=== PATIENT | female | born 1965 | race Caucasian/White ===

== ENCOUNTER → 2019-08-19 13:08 | Outpatient (BNVA) | payer MEDICARE, SELFPAY | PROVIDERS: Family Provider Nurse Practitioner Family; PCP Nurse Practitioner Family; Visit Provider Nurse Practitioner Psychiatric/Mental Health | DX: R45.7 State of emotional shock and stress, unspecified (principal); Z63.4 Disappearance and death of family member; F31.73 Bipolar disorder, in partial remission, most recent episode manic | CPT/HCPCS: 99213 ==

== ENCOUNTER → 2019-09-18 13:30 | Outpatient (BNVA) | payer MEDICARE, SELFPAY | PROVIDERS: Family Provider Nurse Practitioner Family; PCP Nurse Practitioner Family; Visit Provider Nurse Practitioner Psychiatric/Mental Health | DX: R45.7 State of emotional shock and stress, unspecified (principal); Z63.4 Disappearance and death of family member; F31.73 Bipolar disorder, in partial remission, most recent episode manic | CPT/HCPCS: 99213 ==

== ENCOUNTER → 2019-11-11 08:01 | Outpatient (BNVA) | payer MEDICARE, SELFPAY | PROVIDERS: Family Provider Nurse Practitioner Family; PCP Nurse Practitioner Family; Visit Provider Nurse Practitioner Psychiatric/Mental Health | DX: F31.73 Bipolar disorder, in partial remission, most recent episode manic (principal); Z63.4 Disappearance and death of family member | CPT/HCPCS: 99213 ==

== ENCOUNTER → 2019-12-09 08:06 | Outpatient (BNVA) | payer MEDICARE, SELFPAY | PROVIDERS: Family Provider Nurse Practitioner Family; PCP Nurse Practitioner Family; Visit Provider Nurse Practitioner Psychiatric/Mental Health | DX: F31.73 Bipolar disorder, in partial remission, most recent episode manic (principal); Z63.4 Disappearance and death of family member | CPT/HCPCS: 99213 ==

== ENCOUNTER → 2020-01-06 07:32 | Outpatient (BNVA) | payer MEDICARE, SELFPAY | PROVIDERS: Family Provider Nurse Practitioner Family; PCP Nurse Practitioner Family; Visit Provider Nurse Practitioner Psychiatric/Mental Health | DX: Z63.4 Disappearance and death of family member (principal); F31.73 Bipolar disorder, in partial remission, most recent episode manic; Z79.899 Other long term (current) drug therapy | CPT/HCPCS: 99214 ==

== ENCOUNTER → 2020-02-04 07:51 | Outpatient (BNVA) | payer MEDICARE, SELFPAY | PROVIDERS: Family Provider Nurse Practitioner Family; PCP Nurse Practitioner Family; Visit Provider Nurse Practitioner Psychiatric/Mental Health | DX: F31.73 Bipolar disorder, in partial remission, most recent episode manic (principal); Z63.4 Disappearance and death of family member | CPT/HCPCS: 99214 ==

== ENCOUNTER → 2020-04-01 08:00 | Outpatient (BNVA) | payer MEDICARE, SELFPAY | PROVIDERS: Family Provider Nurse Practitioner Family; PCP Nurse Practitioner Family; Visit Provider Nurse Practitioner Psychiatric/Mental Health | DX: Z63.4 Disappearance and death of family member (principal); F31.73 Bipolar disorder, in partial remission, most recent episode manic; F17.210 Nicotine dependence, cigarettes, uncomplicated | CPT/HCPCS: 99214 ==

== ENCOUNTER → 2020-04-29 07:31 | Outpatient (BNVA) | payer MEDICARE, SELFPAY | PROVIDERS: Family Provider Nurse Practitioner Family; PCP Nurse Practitioner Family; Visit Provider Nurse Practitioner Psychiatric/Mental Health | DX: F31.73 Bipolar disorder, in partial remission, most recent episode manic (principal); Z63.4 Disappearance and death of family member | CPT/HCPCS: 99214 ==

== ENCOUNTER → 2020-05-29 07:53 | Outpatient (BNVA) | payer MEDICARE, SELFPAY | PROVIDERS: Family Provider Nurse Practitioner Family; PCP Nurse Practitioner Family; Visit Provider Nurse Practitioner Psychiatric/Mental Health | DX: F31.73 Bipolar disorder, in partial remission, most recent episode manic (principal); Z63.4 Disappearance and death of family member; Z79.899 Other long term (current) drug therapy | CPT/HCPCS: 80053; 80061; 83036; 99213 ==

== ENCOUNTER → 2020-06-26 07:30 | Outpatient (BNVA) | payer MEDICARE, SELFPAY | PROVIDERS: Family Provider Nurse Practitioner Family; PCP Nurse Practitioner Family; Visit Provider Nurse Practitioner Psychiatric/Mental Health | DX: F31.73 Bipolar disorder, in partial remission, most recent episode manic (principal); Z63.4 Disappearance and death of family member | CPT/HCPCS: 99213 ==

== ENCOUNTER → 2020-08-07 07:56 | Outpatient (BNVA) | payer MEDICARE, SELFPAY | PROVIDERS: Family Provider Nurse Practitioner Family; PCP Nurse Practitioner Family; Visit Provider Nurse Practitioner Psychiatric/Mental Health | DX: F31.73 Bipolar disorder, in partial remission, most recent episode manic (principal); Z63.4 Disappearance and death of family member | CPT/HCPCS: 99213 ==

== ENCOUNTER → 2020-09-18 07:41 | Outpatient (BNVA) | payer MEDICARE, SELFPAY | PROVIDERS: Family Provider Nurse Practitioner Family; PCP Nurse Practitioner Family; Visit Provider Nurse Practitioner Psychiatric/Mental Health | DX: Z63.4 Disappearance and death of family member (principal); F31.73 Bipolar disorder, in partial remission, most recent episode manic | CPT/HCPCS: 99214 ==

== ENCOUNTER → 2020-10-12 07:58 | Outpatient (BNVA) | payer MEDICARE, SELFPAY | PROVIDERS: Family Provider Nurse Practitioner Family; PCP Nurse Practitioner Family; Visit Provider Nurse Practitioner Psychiatric/Mental Health | DX: F31.73 Bipolar disorder, in partial remission, most recent episode manic (principal); Z63.4 Disappearance and death of family member | CPT/HCPCS: 99214 ==

== ENCOUNTER → 2020-11-18 07:51 | Outpatient (BNVA) | payer MEDICARE, SELFPAY | PROVIDERS: Family Provider Nurse Practitioner Family; PCP Nurse Practitioner Family; Visit Provider Nurse Practitioner Psychiatric/Mental Health | DX: Z63.4 Disappearance and death of family member (principal); F31.73 Bipolar disorder, in partial remission, most recent episode manic | CPT/HCPCS: 99214 ==

== ENCOUNTER → 2020-12-23 07:51 | Outpatient (BNVA) | payer MEDICARE, SELFPAY | PROVIDERS: Family Provider Nurse Practitioner Family; PCP Nurse Practitioner Family; Visit Provider Nurse Practitioner Psychiatric/Mental Health | DX: F31.73 Bipolar disorder, in partial remission, most recent episode manic (principal); Z63.4 Disappearance and death of family member | CPT/HCPCS: 99214 ==

== ENCOUNTER → 2021-01-27 13:15 | Outpatient (BNVA) | payer MEDICARE, SELFPAY | PROVIDERS: Family Provider Nurse Practitioner Family; PCP Nurse Practitioner Family; Visit Provider Nurse Practitioner Psychiatric/Mental Health | DX: F31.73 Bipolar disorder, in partial remission, most recent episode manic (principal); Z63.4 Disappearance and death of family member | CPT/HCPCS: 99214 ==

== ENCOUNTER → 2021-03-26 09:51 | Outpatient (BNVA) | payer MEDICARE, SELFPAY | PROVIDERS: Family Provider Nurse Practitioner Family; PCP Nurse Practitioner Family; Visit Provider Nurse Practitioner Psychiatric/Mental Health | DX: F31.73 Bipolar disorder, in partial remission, most recent episode manic (principal); Z63.4 Disappearance and death of family member | CPT/HCPCS: 99214 ==

== ENCOUNTER → 2021-05-06 11:11 | Outpatient (BNVA) | payer MEDICARE, SELFPAY | PROVIDERS: Family Provider Nurse Practitioner Family; PCP Nurse Practitioner Family; Visit Provider Nurse Practitioner Psychiatric/Mental Health | DX: F31.73 Bipolar disorder, in partial remission, most recent episode manic (principal); Z79.899 Other long term (current) drug therapy; Z63.4 Disappearance and death of family member | CPT/HCPCS: 99214 ==

== ENCOUNTER 2021-05-06 12:09 | Outpatient (CLI) | payer MEDICARE, SELFPAY ==
--- NOTE | 2021-05-06 12:57 | ECG_ITS ---
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 Measurements Intervals [place] Rate: 51 P: 56 [place]: 156 QRS: 33 QRSD: 86 T: 41 QT: 441 QTc: 408 Interpretive Statements SINUS BRADYCARDIA No previous ECG available for comparison Electronically Signed On 05-07-2021 5:49:11 CDT by Dali Silva M.D. [email or web address]
== END 2021-05-06 12:10 | disposition home or self-care (01) ==
PROVIDERS: PCP Nurse Practitioner Family; Visit Provider Nurse Practitioner Psychiatric/Mental Health
DX: Z79.899 Other long term (current) drug therapy (principal); R00.1 Bradycardia, unspecified
CPT/HCPCS: 93005; 99214

== ENCOUNTER 2021-05-17 10:16 | Outpatient (CLI) | payer MEDICARE, SELFPAY ==
[2021-05-17 11:17] LABS: Alanine Aminotransferase 21 U/L (0-33); Albumin Level 4.8 g/dL (3.5-5.2); Alkaline Phosphatase 88 IU/L (35-105); Anion Gap 16.2 (5-19); Aspartate Amino Transferase 25 U/L (0-32); Blood Urea Nitrogen 17 mg/dL (6-20); Calcium 10.3 mg/dL (8.5-10.5); Carbon Dioxide 27 mmol/L (22-29); Chloride 103 mmol/L (98-107); Chol HDL Ratio 5.91 mg/dL (0.0-4.40); Cholesterol 260 mg/dL (0-200); Globulin 3.7 g/dL (1.3-4.6); Glomerular Filtration Rate 57.4 mL/min (90-130); Glucose 86 mg/dL (65-115); HDL Cholesterol 44 mg/dL (60-100); LDL Cholesterol Calculated 147 mg/dL (50-129); LDL HDL Ratio 3.34 RATIO (0.00-3.22); Osmolality Calculated 295 mOsm/kg (285-295); Potassium 4.2 mmol/L (3.5-5.1); Sodium 142 mmol/L (136-145); Total Bilirubin 0.2 mg/dL (0.15-1.2); Total Protein 8.5 g/dL (6.6-8.7); Triglycerides 346 mg/dL (0-150)
[2021-05-17 11:19] LABS: Estmated Average Glucose 100; Hemoglobin A1C 5.1 % (4.0-6.0)
== END 2021-05-17 10:17 | disposition home or self-care (01) ==
LOC: LAB 10:21
PROVIDERS: Nurse Practitioner Psychiatric/Mental Health; PCP Nurse Practitioner Family; Visit Provider Nurse Practitioner Family
DX: Z79.899 Other long term (current) drug therapy (principal)
CPT/HCPCS: 80053; 80061; 83036

== ENCOUNTER → 2021-08-11 07:50 | Outpatient (BNVA) | payer MEDICARE, SELFPAY | PROVIDERS: PCP Nurse Practitioner Family; Visit Provider Nurse Practitioner Psychiatric/Mental Health | DX: F31.73 Bipolar disorder, in partial remission, most recent episode manic (principal); Z79.899 Other long term (current) drug therapy; Z63.4 Disappearance and death of family member | CPT/HCPCS: 99214 ==

== ENCOUNTER → 2021-10-06 10:51 | Outpatient (BNVA) | payer MEDICARE, SELFPAY | PROVIDERS: PCP Nurse Practitioner Family; Visit Provider Nurse Practitioner Psychiatric/Mental Health | DX: F31.73 Bipolar disorder, in partial remission, most recent episode manic (principal); Z63.4 Disappearance and death of family member; Z79.899 Other long term (current) drug therapy | CPT/HCPCS: 99214 ==

== ENCOUNTER 2021-10-06 13:25 | Emergency (ER) | payer MEDICARE, SELFPAY ==
[2021-10-06 14:00] VITALS: PULSE 60; RESP 16; TEMP 36.9; O2SAT 96; BMI 25.0
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
--- NOTE | 2021-10-06 14:16 | XR_ITS ---
WS: [id number] XR ankle RT min 3V* [id number] REASON FOR EXAM: injury FINDINGS: Oblique comminuted fracture of the distal fibula which involves the syndesmosis. Fracture fragments are not significantly displaced or angulated. There is mild narrowing of the ankle mortise and lateral clear space. On the lateral there is an additional bone density posteriorly. Uncertain as to whether this represen ts part of the distal fibular fracture or an additional posterior malleolar fracture. Small bony bodies adjacent to the medial malleolus appear well-corticated and likely represent old me dial collateral ligamentous injury. XR/XR ankle RT min 3V* [id number] IMPRESSION: Distal right fibular fracture. Possibly additional posterior malleolar fracture.
--- NOTE | 2021-10-06 14:16 | XR_ITS ---
WS: [id number] XR hand LT min 3V* [id number] REASON FOR EXAM: injury FINDINGS: No acute fracture. No dislocation. Arthropathy involving the metacarpal phalangeal and carpal metacarpal joint of the thumb characterize d by narrowing of the joint space with subchondral sclerosis and subluxation. No soft tissue abnormality. XR/XR hand LT min 3V* [id number] IMPRESSION: No fracture or dislocation. Osteoarthritis of the thumb.
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
[2021-10-06] MEDS: tetanus-dipt-pertussis 0.5 mL SDV IM (16:23)
--- NOTE | 2021-10-07 10:36 | DCPLANNER ---
Addendum entered by Alona Pride 10/15/21 09:15: Vangie from ortho informed case aide that the clinic attempted to reach patient, on first attempt patient hung up on clinic. Then clinic called back,no answer but did leave a voicemail asking patient to call and schedule the appointment. Then ortho clinic called life partner, left a message with the life partner, explaining that the clinic was trying to get patient a follow up appointment scheduled. Patient never returned the clinics call. audio/visual manager called patient, left a voicemail for patient to return rifle case repairer phone call. Then case aide called life partner, left a message with the life partner to have patient call the ortho clinic to schedule an appointment. Original Note: audio/visual manager had message to schedule a follow up appointment for patient with ortho. audio/visual manager called the ortho clinic, spoke with Brittney, gave clinic patients information. audio/visual manager was told that patients information would be printed and reviewed. Clinic will call patient with appointment information.
== END 2021-10-06 16:31 | disposition home or self-care (01) ==
PROVIDERS: Emergency Provider Nurse Practitioner Family; PCP Nurse Practitioner Family
DX: S82.821A Torus fracture of lower end of right fibula, initial encounter for closed fracture (principal); S50.12XA Contusion of left forearm, initial encounter; S50.11XA Contusion of right forearm, initial encounter; S80.12XA Contusion of left lower leg, initial encounter; S80.11XA Contusion of right lower leg, initial encounter; S20.112A Abrasion of breast, left breast, initial encounter; W55.12XA Struck by horse, initial encounter; Z87.891 Personal history of nicotine dependence; Z23 Encounter for immunization
CPT/HCPCS: 71045; 73130; 73610; 90471; 90715; 99282

== ENCOUNTER → 2021-11-26 12:29 | Outpatient (BNVA) | payer MEDICARE, SELFPAY | PROVIDERS: PCP Nurse Practitioner Family; Visit Provider Nurse Practitioner Psychiatric/Mental Health | DX: F31.73 Bipolar disorder, in partial remission, most recent episode manic (principal); Z63.4 Disappearance and death of family member; Z79.899 Other long term (current) drug therapy | CPT/HCPCS: 99214 ==

== ENCOUNTER → 2022-07-01 12:52 | Outpatient (BNVA) | payer MEDICARE, OTHER, SELFPAY | PROVIDERS: PCP Nurse Practitioner Family; Visit Provider Nurse Practitioner Psychiatric/Mental Health | DX: Z79.899 Other long term (current) drug therapy (principal); F31.73 Bipolar disorder, in partial remission, most recent episode manic; Z63.4 Disappearance and death of family member | CPT/HCPCS: 80053; 80061; 83036 ==

== ENCOUNTER 2023-01-06 10:14 | Outpatient (CLI) | payer MEDICARE, SELFPAY | END 2023-01-06 10:15 | disposition home or self-care (01) | PROVIDERS: PCP Nurse Practitioner Family; Visit Provider Nurse Practitioner Psychiatric/Mental Health | DX: Z79.899 Other long term (current) drug therapy (principal) | CPT/HCPCS: 93005 ==

== ENCOUNTER → 2024-01-02 14:48 | Outpatient (BNVA) | payer MEDICARE, SELFPAY | PROVIDERS: PCP Nurse Practitioner Family; Visit Provider Nurse Practitioner Psychiatric/Mental Health | DX: Z79.899 Other long term (current) drug therapy (principal) | CPT/HCPCS: 80053; 80061; 83036 ==

== ENCOUNTER → 2024-06-11 15:23 | Outpatient (BNVA) | payer MEDICARE, SELFPAY | PROVIDERS: PCP Nurse Practitioner Family; Visit Provider Nurse Practitioner Psychiatric/Mental Health | DX: Z79.899 Other long term (current) drug therapy (principal); F31.73 Bipolar disorder, in partial remission, most recent episode manic; Z63.4 Disappearance and death of family member | CPT/HCPCS: 80061 ==

== ENCOUNTER 2024-11-30 23:53 | Emergency (ER) | payer MEDICARE, SELFPAY ==
[2024-11-30 23:59] VITALS: BP 131/78; PULSE 57; RESP 17; TEMP 37.1; O2SAT 99; BMI 19.0
[2024-12-01 01:46] LABS: Basophils % 0.1 %; Hematocrit 39.5 % (36-47); Lymphocytes # 1.3 10^3/uL (0.8-4.8); Lymphocytes % 11.6 %; Mean Corpuscular HGB Conc 32.9 g/dL (30-55); Mean Corpuscular Hemoglobin 31.3 pg (27-33); Mean Corpuscular Volume 95.2 fl (85-98); Mean Platelet Volume 10.6 fL (7.4-10.4); Monocytes # 0.9 10^3/uL (0.2-0.9); Monocytes % 7.5 %; Neutrophils # 9.21 10^3/uL (1.8-7.7); Neutrophils % 80.5 %; Nucleated Red Blood Cells % 0 %; Platelet Count 190 10^3/cmm (157-399); Red Blood Count 4.15 10^6/uL (3.85-5.65); Red Cell Distribution Width 13.4 % (12.1-15.1); White Blood Count 11.44 10^3/uL (3.29-11.43)
[2024-12-01 02:09] LABS: Anion Gap 19.2 (5-19); Blood Urea Nitrogen 19 mg/dL (6-20); Calcium 10.3 mg/dL (8.5-10.5); Carbon Dioxide 22 mmol/L (22-29); Chloride 104 mmol/L (98-107); Creatinine Clr Calc Pharmacy 64.8333; Glomerular Filtration Rate 64.1 mL/min (90-130); Glucose 156 mg/dL (65-115); Lipase 36 U/L (13-60); Osmolality Calculated 299 mOsm/kg (285-295); Potassium 3.2 mmol/L (3.5-5.1); Sodium 142 mmol/L (136-145)
[2024-12-01 02:14] LABS: Alanine Aminotransferase 14 U/L (0-33); Albumin Level 4.9 g/dL (3.5-5.2); Alkaline Phosphatase 85 U/L (35-105); Aspartate Amino Transferase 27 U/L (0-32); Total Bilirubin 0.4 mg/dL (0.15-1.2); Total Protein 7.9 g/dL (6.6-8.7)
[2024-12-01 02:20] VITALS: BP 137/63; PULSE 57; O2SAT 95
[2024-12-01] MEDS: sodium chloride 0.9% 1,000 ML 999 ML IV (03:23)
[2024-12-01] MEDS: ketorolac 30 mg/mL INJ IVP (03:24)
[2024-12-01] MEDS: ondansetron 2 mg/ML SDV 2 mL 4 MG IVP (03:26)
[2024-12-01] MEDS: metoclopramide 5 mg/mL SDV 2 mL 10 MG IVP (03:27)
[2024-12-01 03:29] VITALS: BP 143/82; PULSE 54; RESP 17; O2SAT 100
[2024-12-01 03:36] LABS: Bilirubin Urine Negative (Negative); Blood Urine Negative (Negative); Glucose Urine UA Negative (Normal); Ketones Urine 1+ (Negative); Leukocyte Esterase Urine 2+ (Negative); Nitrate Urine Negative (Negative); Protein Urine 2+ (Negative); Urine Appearance Cloudy (CLEAR); Urine Color Dark Yellow (Yellow)
[2024-12-01 03:41] LABS: Add Urine Microscopic? YES; Bacteria Urine 2+ /hpf; Hyaline Casts Urine 7.42 /lpf; RBC Urine 21-50 /hpf (0-2); WBC Urine 51-100 /hpf (0-5)
[2024-12-01 03:51] LABS: Specific Gravity, Urine 1.038 (1.005-1.030)
[2024-12-01 03:52] LABS: UA Slide Review UA Slide Review Perf
[2024-12-01 03:53] LABS: Add Urine Culture? No; Calcium Oxalate Crystals Urine >100 /hpf
--- NOTE | 2024-12-01 04:10 | CTR_ITS ---
PROCEDURE INFORMATION: Exam: CT Abdomen And Pelvis Without Contrast Exam date and time: 12/01/2024 4:25 AM Age: 59 years old Clinical indication: Fever and nausea and vomiting and other: Hematuria; Abdominal pain; Localized; Lower abd pain with fever, n/v, and hematuria. ; Additional info: Abd pain, vomiting, hematuria TECHNIQUE: Imaging protocol: Computed tomography of the abdomen and pelvis without contrast. Radiation optimization: All CT scans at this facility use at least one of these dose optimization techniques: automated exposure control; mA and/or kV adjustment per patient size (includes targeted exams where dose is matched to clinical indication); or iterative reconstruction. COMPARISON: CR XR chest 1V portable [id number] 06/10/2021 13:51 RADIATION DOSE METRICS: Total DLP (mGy-cm): 333.47 FINDINGS: Lungs: Bilateral lower lobe calcified granulomata. No consolidation. Liver: Normal size and homogeneous density. No liver mass is seen. Gallbladder and biliary ducts: No calcified gallstones. No ductal dilation. Pancreas: Normal size and homogeneous density. No ductal dilation. Spleen: Normal. No splenomegaly. Adrenal glands: Normal. No mass. Kidneys and ureters: There is no hydronephrosis. No renal or obstructive ureteral calculi are identified. Stomach and bowel: There is no evidence of small bowel or colonic obstruction. Appendix: No evidence of appendicitis. Intraperitoneal space: No free air. No significant fluid collection. Vasculature: There is mild atherosclerotic calcification of the abdominal aorta and its branches without aneurysm. Lymph nodes: No enlarged retroperitoneal or mesenteric lymph nodes. Urinary bladder: There is mild bladder wall thickening. Reproductive: Unremarkable as visualized. Bones/joints: No acute fracture. Degenerative disc disease at L4-L5 without significant central spinal canal stenosis. At L5-S1, there is bilateral pars defects and mild grade 1 anterolisthesis of L5. There is degenerative disc disease, anterior and posterior osteophytes, facet arthrosis with moderate bilateral neural foraminal narrowing. Soft tissues: Unremarkable. CT/CT kidney stone [id number] IMPRESSION: 1. Bladder wall thickening suggesting cystitis, incomplete distention or chronic outflow obstruction. 2. Discogenic and hypertrophic bony changes of the lumbar spine as described above.
[2024-12-01 05:26] VITALS: BP 141/68; PULSE 62; RESP 16; O2SAT 94
[2024-12-01] MEDS: cefTRIAXone 1,000 mg SDV 1000 MG IVP (05:57)
[2024-12-01 06:03] VITALS: BP 146/73; PULSE 68; RESP 15; O2SAT 98
--- NOTE | 2024-12-01 06:04 | W.ED.NAVMDI ---
HPI - Nausea/Vomiting/Diarrhea General: Chief complaint: Nausea/Vomiting/Diarrhea Stated complaint: Pain in upper ABD N/V fever weakness Time Seen by Provider: 12/01/24 03:03 History of Present Illness: 59 year old female with nausea, vomiting, diarrhea, and low grade fever since 6:00 in the morning. She has been unable to keep liquids down. She has generalized abdominal pain, although worse on the left than the right. No sick contacts. No history of abdominal surgery. No history of food poisoning. Related Data Home Medications ?Medication ?Instructions ?Recorded ?Confirmed krill oil 500 mg capsule 500 mg PO BID 08/19/19 11/22/24 vitamin B complex (B 1 tab PO QDAY 08/19/19 11/22/24 Complex-Vitamin B12 tablet) black cohosh 200 mg capsule 200 mg PO BID 09/03/20 11/22/24 Multivitamin PO 07/01/22 11/22/24 Previous Rx's ?Medication ?Instructions ?Recorded clonazepam 0.5 mg tablet (Klonopin) 0.5 mg PO BID PRN anxiety #60 tabs 10/10/24 lamotrigine 100 mg tablet 100 mg PO .QHS #90 tabs 10/10/24 (Lamictal) sertraline 100 mg tablet (Zoloft) 200 mg (2 x 100 mg) PO QAM #180 10/10/24 tabs ziprasidone HCl 80 mg capsule 80 mg PO .evening with meal #90 10/10/24 (Geodon) caps cefdinir 300 mg capsule 300 mg PO BID #14 caps 12/01/24 ondansetron 4 mg disintegrating 4 mg PO Q6H PRN nausea and 12/01/24 tablet vomiting #14 tabs Allergies Allergy/AdvReac Type Severity Reaction Status Date / Time hydrocodone Allergy Intermediate Itching & Verified 11/22/24 11:01 N & V tramadol AdvReac ADR-Itching Verified 11/22/24 11:01 [facility] PFSH: Medical History Psychiatric care Bipolar I disorder, most recent episode manic, in partial remission Bereavement sudden loss of adult son, 06/24/2019 loss of father 08/16/24 Social History Smoking and tobacco/nicotine status: former use of tobacco/nicotine Physical Exam Const: COMMON NORMALS: no acute distress GENERAL APPEARANCE: cooperative; not ill appearing and not frail appearing HENMT: COMMON NORMALS: normocephalic, atraumatic and Normal external nose present HEAD & SCALP: normocephalic and atraumatic FACE & SINUS: normal facial exam and face symmetric NOSE: Normal external nose present Eye: COMMON NORMALS: Equal, round and reactive pupils present and EOMs intact bilaterally PUPIL: Yes Equal, round and reactive pupils present Neck/C-Spine: GENERAL: Yes trachea midline Chest: CHEST: Yes Symmetrical chest wall rise Resp: COMMON NORMALS: normal respiratory effort, No retractions, No use of accessory muscles and clear to auscultation bilaterally AUSCULTATION: clear to auscultation bilaterally Cardio: COMMON NORMALS: regular rate and regular rhythm RATE: regular rate RHYTHM: regular rhythm GI: COMMON NORMALS: Normal to inspection, nondistended, normoactive bowel sounds present Extremity: COMMON NORMALS: no pedal edema Neuro: ERIN COMA SCALE: document GCS findings Erin coma scale eye opening: Spontaneous [place] coma scale verbal response: Orientated [place] coma scale motor response: Obey commands Erin coma scale total score: 15 SENSORY EXAM: Yes extremities (intact) Psych: COMMON NORMALS: speech normal SPEECH: Yes normal speech Skin: COMMON NORMALS: no rashes or lesions noted GENERAL SKIN EXAM: no rashes or lesions noted Course Vital Signs: Vital signs: Vital Signs Temperature 98.8 F 11/30/24 23:59 Pulse Rate 64 12/01/24 06:13 Respiratory Rate 16 12/01/24 06:13 Blood Pressure 146/73 12/01/24 06:13 Pulse Oximetry 98 12/01/24 06:13 Oxygen Delivery Me thod Room Air 12/01/24 06:03 MDM - Nausea/Vomiting/Diarrhea Medical Decision Making Some mild left sided tenderness. White blood cell count is 11.4. Potassium is 3.2. CRP is only 3. urinalysis shows hematuria, with leukocytes. Lipase is normal. CT reveals no stone or obsturction but does show cystitis. She was treated with IV fluids, anti emetics, antibiotics here. And she'll go home on Zofran and antibiotics. To return for worsening symptoms. Lab Data 12/01/24 01:29 12/01/24 01:29 Radiology Impressions Abdomen/Pelvis CT 12/01/24 04:10 IMPRESSION: 1. Bladder wall thickening suggesting cystitis, incomplete distention or chronic outflow obstruction. 2. Discogenic and hypertrophic bony changes of the lumbar spine as described above. Laboratory Results WBC 11.44 10^3/uL (3.29-11.43) H 12/01/24 01: RBC 4.15 10^6/uL (3.85-5.65) 12/01/24 01: Hgb 13.00 g/dL (11.27-16.99) 12/01/24 01: Hct 39.5 % (36-47) 12/01/24 01: MCV 95.2 fl (85-98) 12/01/24 01: MCH 31.3 pg (27-33) 12/01/24 01: MCHC 32.9 g/dL (30-55) 12/01/24 01: RDW 13.4 % (12.1-15.1) 12/01/24 01: Plt Count 190 10^3/cmm (157-399) 12/01/24 01: MPV 10.6 fL (7.4-10.4) H 12/01/24 01: Neut % (Auto) 80.5 % 12/01/24 01: Lymph % (Auto) 11.6 % 12/01/24 01: [place] % (Auto) 7.5 % 12/01/24 01: Eos % (Auto) 0.0 % 12/01/24 01: Baso % (Auto) 0.1 % 12/01/24 01: Neut # (Auto) 9.21 10^3/uL (1.8-7.7) H 12/01/24 01: Lymph # (Auto) 1.3 10^3/uL (0.8-4.8) 12/01/24 01: [place] # (Auto) 0.9 10^3/uL (0.2-0.9) 12/01/24 01: Eos # (Auto) 0.0 10^3/uL (0.0-0.8) 12/01/24 01: Baso # (Auto) 0.0 10^3/uL (0.0-0.1) 12/01/24 01:29 Nucleated RBC % (auto) 0 % 12/01/24 01: Nucleated RBCs # 0.0 /100WBC 12/01/24 01:29 Sodium 142 mmol/L (136-145) 12/01/24 01: Potassium 3.2 mmol/L (3.5-5.1) L 12/01/24 01: Chloride 104 mmol/L (98-107) 12/01/24 01: Carbon Dioxide 22 mmol/L (22-29) 12/01/24 01:29 Anion Gap 19.2 (5-19) H 12/01/24 01:29 BUN 19 mg/dL (6-20) 12/01/24 01: Creatinine 0.9 mg/dL (0.5-0.9) 12/01/24 01: GFR Calculation 64.1 mL/min (90-130) L 12/01/24 01: Glucose 156 mg/dL (65-115) H 12/01/24 01: Calculated Osmolality 299 mOsm/kg (285-295) H 12/01/24 01:29 Calcium 10.3 mg/dL (8.5-10.5) 12/01/24 01: Total Bilirubin 0.4 mg/dL (0.15-1.2) 12/01/24 01: Direct Bilirubin 0.20 mg/dL (0.00-0.30) 12/01/24 01: AST 27 U/L (0-32) 12/01/24 01: ALT 14 U/L (0-33) 12/01/24 01: Alkaline Phosphatase 85 U/L (35-105) 12/01/24 01:29 C-Reactive Protein 3.0 mg/L (0.0-4.9) 12/01/24 01: Total Protein 7.9 g/dL (6.6-8.7) 12/01/24 01: Albumin 4.9 g/dL (3.5-5.2) 12/01/24 01: Globulin 3.0 g/dL (1.3-4.6) 12/01/24 01: Lipase 36 U/L (13-60) 12/01/24 01:29 Urine Color Dark yellow (Yellow) A 12/01/24 03:25 Urine Appearance Cloudy (CLEAR) A 12/01/24 03:25 Urine pH 6.0 (5-7) 12/01/24 03:25 Ur Specific [place] 1.038 (1.005-1.030) H 12/01/24 03:25 Urine Protein 2+ (Negative) A 12/01/24 03:25 Urine Glucose (UA) Negative (Normal) 12/01/24 03:25 Urine Ketones 1+ (Negative) H 12/01/24 03:25 Urine Blood Negative (Negative) 12/01/24 03:25 Urine Nitrate Negative (Negative) 12/01/24 03:25 Urine Bilirubin Negative (Negative) 12/01/24 03:25 Urine Urobilinogen 1.0 mg/dL (Negative) 12/01/24 03:25 Ur Leukocyte Esterase 2+ (Negative) A 12/01/24 03:25 Urine RBC 21-50 /hpf (0-2) H 12/01/24 03:25 Urine WBC 51-100 /hpf (0-5) H 12/01/24 03:25 Ur Squamous Epith Cells 11-20 /hpf (0-5) H 12/01/24 03:25 Calcium Oxalate Crystal >100 /hpf H 12/01/24 03:25 Amorphous Sediment Not Reportable 12/01/24 03:25 Urine Bacteria 2+ /hpf (NONE) H 12/01/24 03:25 Hyaline Casts 7.42 /lpf 12/01/24 03:25 All radiology interpretation(s) finalized by discharge Discharge Plan Discharge Patient Disposition: Home Clinical Impression: UTI (urinary tract infection), Vomiting Condition: Stable Prescriptions: New ondansetron 4 mg tablet,disintegrating 4 mg PO Q6H PRN (Reason: nausea and vomiting) Qty: 14 0RF cefdinir 300 mg capsule 300 mg PO BID Qty: 14 0RF No Action vitamin B complex [B Complex-Vitamin B12] Tablet 1 tab PO QDAY krill oil 500 mg capsule 500 mg PO BID black cohosh 200 mg capsule 200 mg PO BID Multivitamin PO Rx Instructions: Vitamin D3 4000IU Vitamin A 300mg Vitamin E 23mg Magnesium 50mg zinc 10mg alpha lipoic acid 100mg probiotic blend 500 million CFU/serving coconut mct oil powder 25 mg clonazepam [Klonopin] 0.5 mg tablet 0.5 mg PO BID PRN (Reason: anxiety) Qty: 60 3RF Rx Instructions: Take one tablet twice per day as needed for anxiety sertraline [Zoloft] 100 mg tablet 200 mg PO QAM Qty: 180 2RF Rx Instructions: Take two tablets every morning lamotrigine [Lamictal] 100 mg tablet 100 mg PO .QHS Qty: 90 2RF Rx Instructions: Take one tablet at bedtime ziprasidone HCl [Geodon] 80 mg capsule 80 mg PO .evening with meal Qty: 90 2RF Rx Instructions: Take one capsule at 6 pm with supper, 500 calories Discharge Orders: Discharge ED (Routine); Ordered 12/01/24 Ordered By: Erick Mckinney Referrals: Tasia Patiño FNP [Primary Care Provider, Family Practice] - 1-3 days Patient Instructions: Urinary Tract Infection in Women (ED), Opioid Safety, Pain Management, Vomiting - Adult Activity Restrictions/Additional Instructions: Take nausea medication scheduled every 4 hours while awake for the first 48 hours. Then you may take it as needed. Antibiotics as directed. Return for problems. Print Language: Mozambican Coding Level of Care Code ED Director [facility] [place] [facility]
[2024-12-01 06:13] VITALS: BP 146/73; PULSE 64; RESP 16; O2SAT 98
== END 2024-12-01 06:14 | disposition home or self-care (01) ==
PROVIDERS: Emergency Provider Emergency Medicine; PCP Nurse Practitioner Family
DX: N39.0 Urinary tract infection, site not specified (principal); R11.10 Vomiting, unspecified; Z87.891 Personal history of nicotine dependence
CPT/HCPCS: 36415; 74176; 80048; 80076; 81001; 83690; 85025; 86140; 96361; 96374; 96375; 99285; J0696; J1885; J2405; J2765; J7030

== ENCOUNTER → 2025-03-27 15:14 | Outpatient (BNVA) | payer MEDICARE, SELFPAY | PROVIDERS: PCP Nurse Practitioner Family; Visit Provider Nurse Practitioner Psychiatric/Mental Health | DX: Z79.899 Other long term (current) drug therapy (principal) | CPT/HCPCS: 80061; 83036 ==